=== PATIENT | female | born 1975 ===

== ENCOUNTER 2023-05-24 21:47 | Emergency (ER) | payer BC ==
[2023-05-24] MEDS ORDERED: Tetracaine HCl/PF 0.5% 4 ML Bottle EYERT ONE (22:12)
[2023-05-24] MEDS ORDERED: Fluorescein 1 MG Ophth Strip EYERT ONE (22:13)
[2023-05-24] MEDS ORDERED: Ciprofloxacin 0.3% Ophth Soln 5 ML Bottle EYERT ONE (22:32)
== END 2023-05-24 22:50 | disposition home or self-care (01) ==
LOC: DL.ED 21:47
DX: S05.8X1A Other injuries of right eye and orbit, initial encounter (principal); X58.XXXA Exposure to other specified factors, initial encounter
CPT/HCPCS: 99282; 99283; A9270-GY